=== PATIENT | male | born 1975 | race Caucasian/White ===

== ENCOUNTER → 2020-05-28 | Outpatient (CLI) | payer OTHER ==
[2015-12-26 15:09] VITALS: BP 128/81
[~2020-05-28] MED LIST: HYDR12.58 PO; LISI20TA18 PO; METR-34 PO
== END ==
LOC: LAB 09:48
PROVIDERS: ATTEND Surgery
DX: Z01.812 Encounter for preprocedural laboratory examination (principal); K40.90 Unilateral inguinal hernia, without obstruction or gangrene, not specified as recurrent; Z20.822 Contact with and (suspected) exposure to COVID-19
CPT/HCPCS: U0003

== ENCOUNTER 2020-05-31 07:40 | Day surgery (SDC) | payer OTHER ==
[~2020-05-31] VITALS: Ht 177.8 cm; Wt 111.0 kg
[~2020-05-31 07:40] MED LIST changes: +BACITRACIN 50,000 UNIT in IV NORMAL SALINE 500ML BAG 500 ML IRR ONE; +HYDROmorphone 2 MG/ML VIAL IVP PRN; +IV RINGERS,LACTATED 1000ML 1,000 ML IV SCH; +PROCHLORPERAZINE 10 MG/2 ML VIAL. IVP PRN; +fentaNYL PF VIAL 100 MCG/2 ML VIAL IVP PRN
[2020-05-31] MEDS ORDERED: PROPOFOL 10 MG/ML (20ML) VIAL. IV ONE (08:11)
[2020-05-31] MEDS ORDERED: LIDOCAINE 2% PF 5 ML VIAL. ONE (08:11)
[2020-05-31] MEDS ORDERED: ROCURONIUM 50 MG/5 ML VIAL. ONE (08:11)
[2020-05-31] MEDS ORDERED: fentaNYL PF VIAL 100 MCG/2 ML VIAL ONE ×2 (08:12→10:42)
[2020-05-31] MEDS ORDERED: BUPIVACAINE-EPI 0.5% 30 ML VIAL KIT. ONE (08:55)
[2020-05-31] MEDS ORDERED: DEXAMETHASONE SOD PHOS 4 MG/ML VIAL ONE (09:18)
[2020-05-31] MEDS ORDERED: ONDANSETRON PF 4 MG/2 ML VIAL. ONE (09:18)
[2020-05-31] MEDS ORDERED: DESFLURANE 31 TO 60 MINUTES IH ONE (09:18)
[2020-05-31] MEDS ORDERED: GLYCOPYRROLATE 1 MG/5 ML VIAL. ONE (10:02)
[2020-05-31] MEDS ORDERED: NEOSTIGMINE METHYLSULFATE 5 MG/5 ML SYRINGE. ONE (10:02)
--- NOTE | 2020-05-31 10:24 | PDOC4 ---
Operative Note Operative Note Preoperative Diagnosis: Left inguinal hernia Postoperative Diagnosis: Same Procedure: Left inguinal hernia repair with mesh Surgeon: Johnnie Program/Music Director: Abiel ELLER Anesthesia: General EBL: 10 mL Specimen: None Drains: None Complications: None Indication: The patient is a 44-year-old male who is referred with a left inguinal hernia. He was offered surgical repair. The risks of surgery were discussed which include bleeding, infection, recurrence, pain, anesthetic risk, potential need for additional surgery procedure. He understands and would like to proceed. Description: The patient was taken the operating room and placed supine on the operating table. General anesthesia was performed. The left groin was shaved and prepped with ChloraPrep and draped in a standard surgical manner. An incision was made in the skin lines of the left groin with a scalpel. Cautery dissection was carried down to the external oblique aponeurosis. The aponeurosis was opened down to the external ring. The contents of the inguinal canal were digitally mobilized and encircled with a Mohawk drain. There was a moderate to large direct hernia present. The edges of the hernia defect were clarified. The attenuated transversalis was opened exposing the preperitoneal fat. The defect was filled with an extra large Phasix mesh plug. The plug was secured around its periphery with 2-0 Vicryl. The entire inguinal floor was then reinforced with a keyhole Prolene mesh patch. The mesh was sutured into position with 2-0 Vicryl. The external oblique was closed over the mesh with 2- 0 Vicryl. The subcutaneous tissue was closed with 3-0 Vicryl. The skin was approximated with 4-0 Monocryl. The incision was infiltrated with half percent Marcaine with epinephrine. Steri-Strips and a sterile dressing were applied. The patient tolerated the procedure well and was sent to the recovery room in stable condition. At the end of the case all counts were correct. ISI HARPER MD May 31, 2020 10:24
--- NOTE | 2020-05-31 10:26 | DISCH ---
DISCHARGE INSTRUCTIONS Condition on Discharge Condition on Discharge: Stable Activity After Discharge Activity Instructions for Disc: Other, see below (no lifting over 20 lbs X 4 weeks) Driving Instructions after Dis: Other, see below (no driving while taking pain meds) Diet after Discharge Diet after Discharge: Pender, Regular Wound Incision Care Wound/Incision Care: Other, see below (keep dressing clean and dry X 72 hours, may then remove and shower, steristrips fall of by themselves) Follow-Up Follow up with: Dr Harper in 2 weeks in office, call for appt [phone] ISI HARPER MD May 31, 2020 10:26
[2020-05-31] MEDS ORDERED: oxyCODONE/APAP 5/325 1 TAB TABLET PO PRN ×2 (10:30)
[2020-05-31] MEDS ORDERED: KETOROLAC 30 MG/ML VIAL. ONE (10:41)
[2020-05-31] MEDS ORDERED: KETOROLAC 30 MG/ML VIAL. IVP ONE (10:45)
[2020-05-31] MEDS: fentaNYL PF VIAL 100 MCG/2 ML VIAL IVP PRN ×2 (10:58→11:05)
[2020-05-31] MEDS ORDERED: MORPHINE SULFATE 2 MG/ML VIAL. ONE (11:17)
[2020-05-31] MEDS: MORPHINE SULFATE 2 MG/ML VIAL. IVP PRN ×2 (11:30→11:44)
[2020-05-31 12:15] VITALS: BP 134/78
== END 2020-05-31 12:27 | disposition home or self-care (01) ==
LOC: SURG 07:40
PROVIDERS: ATTEND Surgery
DX: K40.90 Unilateral inguinal hernia, without obstruction or gangrene, not specified as recurrent (principal); I10 Essential (primary) hypertension; Z79.899 Other long term (current) drug therapy; Z98.890 Other specified postprocedural states; Z72.89 Other problems related to lifestyle
CPT/HCPCS: 49505; J0690; J1100; J1885; J2270; J2405; J2704; J2710; J3010; J3490; C1781; J7040